=== PATIENT | male | born 1940 | race Caucasian/White ===

== ENCOUNTER 2018-08-23 15:50 | Inpatient (IN) | payer MEDICARE, BC ==
[~2018-08-23 15:50] MED LIST: ISOVUE-370 76%-LOCM 1 ML ONE
[2018-08-23] MEDS ORDERED: Morphine 4 MG/ML VIAL ONE ×2 (16:36→18:18)
[2018-08-23] MEDS ORDERED: Ondansetron PF 4 MG/2 ML Vial ONE (16:36)
[2018-08-23 16:51] LABS: #Lymphocytes 0.5 thou/uL (1.20-3.40); #Monocytes 0.8 thou/uL (0.11-0.59); #Neutrophils 7.2 thou/uL (1.40-6.50); %Basophils 0.4 % (0.0-1.0); %Eosinophils 0.2 % (0.0-10.0); %Lymphocytes 6.3 % (21.0-51.0); %Monocytes 9.4 % (0.0-10.0); %Neutrophils 83.8 % (42.0-75.0); Hemoglobin 15.6 g/dL (14.0-18.0); Mean Corpuscular HGB CONC 32.8 g/dL (32.0-36.0); Mean Corpuscular Hemoglobin 31.4 pg (27.0-31.0); Mean Corpuscular Volume 95.9 fL (78.0-98.0); Mean Platelet Volume 7.8 fL (7.4-10.4); Platelet Count 176 thou/uL (130-400); RBC Distribution Width 12.6 % (11.5-14.5); Red Blood Cell (RBC) Count 4.98 mill/uL (4.70-6.10); White Blood Cell (WBC) Count 8.5 thou/uL (4.8-10.8)
[2018-08-23 17:03] LABS: ALT (SGPT) 11 U/L (8-55); AST (SGOT) 18 U/L (5-34); Albumin 4.5 g/dL (3.4-4.8); Alkaline Phosphatase 67 U/L (40-150); Anion Gap 13 mmol/L (10-20); BUN (Urea Nitrogen) 22 mg/dL (8.4-25.7); Bilirubin, Total 0.6 mg/dL (0.2-1.2); Calc. Creatinine Clearance 0 mL/min (70-130); Carbon Dioxide 25 mmol/L (23-31); Chloride 102 mmol/L (98-107); Estimated GFR-MDRD 68; Globulin 3.3 g/dL (2.4-3.5); Glucose 149 mg/dL (83-110); Lipase 5 U/L (8-78); Potassium 4.3 mmol/L (3.5-5.1); Protein, Total 7.8 g/dL (5.8-8.1); Sodium 136 mmol/L (136-145)
[2018-08-23 17:20] LABS: Bilirubin Negative (Negative); Clarity CLEAR (Clear); Glucose, Urine (Dipstick) Negative (Negative); Leukocyte Negative (Negative); Nitrite Negative (Negative); Protein, Urine (Dipstick) 30 mg/dL (Neg-Trace); Urobilinogen 0.2 mg/dL (0.2-1.0); pH, Urine 5.5 (5.0-9.0)
[2018-08-23 17:22] LABS: Bacteria/HPF None Seen HPF (None Seen); Hyaline Casts/LPF 4-6 HYALINE CAST LPF (0-3 Hyaline); Pathc Cast-AUWi Flag 0.81 (0-2.49); Squamous Epithelial 0-3 HPF (0-3); WBC/HPF 0-3 HPF (0-3)
--- NOTE | 2018-08-23 17:29 | RAD ---
AP view abdomen. HISTORY: Abdominal pain. AP view abdomen is obtained. Severe levoscoliosis centered at the L3 level. No obvious evidence of bowel obstruction or ileus seen . No dilated loops of bowel seen. IMPRESSION: Unremarkable AP view abdomen.
[2018-08-23 17:47] LABS: Blood, Urine Trace (Negative)
--- NOTE | 2018-08-23 18:27 | CT ---
Contrast-enhanced images abdomen and pelvis. HISTORY: Abdominal pain. Contrast-enhanced CT images of the abdomen pelvis is obtained after administration of IV contrast. Or al contrast was not given. Some areas of patchy density seen in the left lower lobe concerning for area of left lower lobe mass or pneumonia. This area has a diameter of the approximately 10 mm. No evidence of free intraperitoneal air seen. The liver and spleen are unremarkable. The pancreas is unremarkable. Raff the gallbladder is unremarkable. Adrenal glands unremarkable. Multiple bilateral renal cortical cyst seen. Multiple left perihilar renal cysts are also present. There is extensive proximal small bowel dilatation. Areas of the proximal small bowel have diameters up to 4 cm. There is an area of soft tissue density in the proximal to mid small bowel seen on axial image #57 and coronal image 51. This may represent an area of small bowel mass or obstruction. Correlate with surgical consultation. The more distal aspect of the small bowel is unremarkable and is of normal caliber. A moderate amount of stool seen in the colon. IMPRESSION: area of proximal small bowel dilatation with focal small bowel caliber change and possibl e associated mass.
[2018-08-23] MEDS ORDERED: Lidocaine Viscous Sol 2% 15 ml UD Cup ONE (18:48)
[2018-08-23] MEDS ORDERED: Benzocaine 20% Spray 60 ML CAN ONE (18:48)
--- NOTE | 2018-08-23 19:15 | RAD ---
Upright view abdomen HISTORY: Placement of NG tube, abdominal pain, bowel obstruction NG tube is been placed and is coiled with a hairpin turn in the mid and distal esophagus. This needs to be pulled back and repositioned to have the distal tip in the stomach. IMPRESSION: NG tube with a hairpin turn within the esophagus.
[2018-08-23] MEDS ORDERED: hydrALAZINE 20 MG/ML VIAL ONE (20:12)
--- NOTE | 2018-08-23 21:21 | RAD ---
AP view lower chest and upper abdomen. Patient with NG tube placement. AP view lower chest and upper abdomen demonstrates placement of an NG tube. Distal tip appears to be in the left upper quadrant of the abdomen in good position. IMPRESSION: NG tube in good position.
[2018-08-23] MEDS ORDERED: Ondansetron ODT 4 MG TAB SL PRN (21:40)
[2018-08-23] MEDS ORDERED: Sodium Chloride 0.9% 1,000 ML IV SCH (21:40)
[2018-08-23] MEDS ORDERED: Acetaminophen 325 MG TAB PO PRN (21:40)
[2018-08-23] MEDS ORDERED: Ondansetron PF 4 MG/2 ML Vial IVP PRN (21:40)
[2018-08-23 23:13] VITALS: BMI 23.6
[2018-08-24] MEDS ORDERED: Acetaminophen 500 MG TAB PO PRN (02:30)
[2018-08-24] MEDS ORDERED: Ondansetron ODT 4 MG TAB PO PRN (02:30)
[2018-08-24] MEDS ORDERED: hydrALAZINE 20 MG/ML VIAL SLOW IVP PRN (02:30)
[2018-08-24] MEDS ORDERED: Ondansetron PF 4 MG/2 ML Vial IVP PRN (02:30)
[2018-08-24] MEDS ORDERED: Morphine 4 MG/ML VIAL SLOW IVP PRN (02:53)
--- NOTE | 2018-08-24 03:11 | HP ---
PRIMARY CARE PROVIDER: Mor Menon MD CHIEF COMPLAINT: Abdominal pain. HISTORY OF PRESENT ILLNESS: This is a 78-year-old male, who presented to [facility] Emergency Department complaining of severe abdominal pain, right-sided in location, approximately within the last 48 hours. The patient initially rated the pain 9/10, but states the pain mainly localized in the right upper and lower quadrant with associated nausea and vomiting. The patient states his last bowel movement was in the last 3 to 4 days with a history of constipation. Last oral intake was 08/23/2018 at 10:30 a.m. The patient tried taking his home dose of Zantac, which did not resolve his symptoms. The patient denied any recent fever, chills, abdominal trauma, recent surgery, or blood in his stool. In the emergency room, the patient underwent general evaluation including CT imaging of the abdomen and pelvis showing evidence of small bowel obstruction. The patient underwent subsequent NG tube placement with decompression with overall improvement in symptoms. The patient denies any prior history of small bowel obstruction, but does state he underwent an appendectomy in 2003. In the ER, the patient also received Toradol, intravenous normal saline, morphine sulfate, and Zofran. The patient was referred to the Hospitalist Service for admission. PAST MEDICAL HISTORY: 1. Parkinson disease. 2. Hypertension. 3. Coronary artery disease. 4. Benign prostatic hyperplasia. 5. Peripheral neuropathy. 6. Hyperlipidemia. PAST SURGICAL HISTORY: 1. Status post cervical spine surgery. 2. Status post cardiac catheterization. 3. Status post appendectomy. 4. Status post carpal tunnel release. 5. Status post coronary artery bypass grafting x4 vessels. 6. Status post right toe surgery. CURRENT MEDICATIONS: 1. Carbidopa levodopa 25/100 mg, one and a half tabs p.o. q.i.d. 2. Aricept 10 mg p.o. daily. 3. Isosorbide mononitrate 5 mg p.o. b.i.d. 4. Ranitidine 150 mg p.o. at bedtime. 5. Crestor 10 mg p.o. at bedtime. 6. Hytrin 2 mg p.o. at bedtime. ALLERGIES: NO KNOWN DRUG ALLERGIES. FAMILY HISTORY: Positive for hypertension. SOCIAL HISTORY: The patient is , accompanied by his spouse in the hospital. Resides in [place], [place]. Retired. Occasional alcohol use. No tobacco or illicit drug use. REVIEW OF SYSTEMS: CONSTITUTIONAL: Negative for weight loss or gain, ability to conduct usual activities. SKIN: Negative for rash, itching. EYES: Negative for double vision, pain. ENT/MOUTH: Negative for nose bleeding, neck stiffness, pain, tenderness. CARDIOVASCULAR: Negative for palpitations, dyspnea on exertion, orthopnea. RESPIRATORY: Negative for shortness of breath, wheezing, cough, hemoptysis, fever or night sweats. GASTROINTESTINAL: Negative for poor appetite, abdominal pain, heartburn, nausea, vomiting, constipation, or diarrhea. GENITOURINARY: Negative for urgency, frequency, dysuria, nocturia. MUSCULOSKELETAL: Negative for pain, swelling. NEUROLOGIC/PSYCHIATRIC: Negative for anxiety, depression. ALLERGY/IMMUNOLOGIC: Negative for skin rash, bleeding tendency. Otherwise negative except as stated per HPI. PHYSICAL EXAMINATION: VITAL SIGNS: On admission, blood pressure 173/93, pulse 81, respiratory rate 18, temperature 98.2 degrees Fahrenheit, and O2 saturation 96% on room air. GENERAL APPEARANCE: This is a 78-year-old male, alert and oriented x3, pleasant, responsive, in no acute distress. HEENT: Pupils are equal, round, and reactive to light and accommodation. Extraocular muscles are intact. No scleral icterus. No conjunctival injection. Nares patent. Right nares with NG tube in place. OP is clear. NECK: Supple. No cervical adenopathy. No thyromegaly. No carotid bruits. No JVD appreciated. Cervical spine with full active and passive range of motion. No meningeal signs noted. CHEST: Lungs are clear to auscultation bilaterally. CARDIOVASCULAR: S1 and S2 without noted murmur, rub, or gallop. ABDOMEN: Soft with bowel sounds positive in all 4 quadrants. No palpable mass. No rebound or guarding noted. EXTREMITIES: Warm and dry with fair turgor. No clubbing, cyanosis, or asymmetric edema appreciated. Pulses palpable distally at the dorsalis pedis, posterior tibial, and popliteal arteries bilaterally. Capillary refill less than 2 seconds. NEUROLOGIC: Cranial nerves 2 through 12 are grossly intact. No focal or lateralizing signs appreciated. PERTINENT LAB AND X-RAY FINDINGS: Complete metabolic profile within normal limits. CEA 3.74. CBC showed a white blood cell count 8.5, hemoglobin 16, hematocrit 48, platelet count 176 with 84% neutrophils. Urinalysis showed trace ketones with 7 to 10 rbc's per high-power field. CT of the abdomen and pelvis dated 08/23/2018, showed proximal small bowel dilation with focal small bowel caliber change consistent with small bowel obstruction. Abdominal radiographs dated 08/23/2018, showed NG tube in place with distal tip in the left upper quadrant. EKG dated 08/23/2018 by my interpretation shows sinus mechanism, heart rates in the 60s. Attenuated R-waves noted in the precordial leads. Left axis deviation. Incomplete right bundle branch block pattern noted. ASSESSMENT AND PLAN: 1. Small bowel obstruction. The patient will be admitted to the surgical bell. We will consult General Surgery Service for further evaluation and recommendations for management. Continue NG tube for decompression. N.p.o. except ice chips and medications. Continue intravenous normal saline at 100 mL/h. 2. Right upper and lower quadrant abdominal pain secondary to #1. Symptomatic and supportive management as outlined in #1. Serial abdominal exams. 3. Constipation, chronic. Senokot-S 2 tablets p.o. b.i.d. and Dulcolax suppository 10 mg per rectum x1. 4. Parkinson disease. Resume home regimen of Sinemet 25/100 mg 1.5 tablets q.i.d. 5. Prophylaxis. SCDs while in bed. Pepcid 20 mg IV q.12 hours. 6. Code status is full. Surrogate medical decision maker is the patient's spouse. Job ID: [id number]
[2018-08-24] MEDS ORDERED: Bisacodyl 10 MG SUPP PR ONE (05:00)
[2018-08-24] MEDS: Sodium Chloride 0.9% 1,000 ML IV SCH ×2 (05:20→13:22)
[2018-08-24 05:32] LABS: Anion Gap 10 mmol/L (10-20); BUN (Urea Nitrogen) 18 mg/dL (8.4-25.7); Calc. Creatinine Clearance 74 mL/min (70-130); Calcium 9.2 mg/dL (7.8-10.44); Carbon Dioxide 26 mmol/L (23-31); Chloride 106 mmol/L (98-107); Estimated GFR-MDRD 84; Glucose 103 mg/dL (83-110); Potassium 3.9 mmol/L (3.5-5.1); Sodium 138 mmol/L (136-145)
[2018-08-24 05:49] LABS: Band 1 % (5-11); Hemoglobin 14.7 g/dL (14.0-18.0); Lymphocytes 12 % (21-51); MDiff Complete? YES; Mean Corpuscular Hemoglobin 31.8 pg (27.0-31.0); Mean Corpuscular Volume 96.5 fL (78.0-98.0); Mean Platelet Volume 7.6 fL (7.4-10.4); Monocytes 8 % (0-10); Neutrophil 79 % (42-75); Platelet Count 164 thou/uL (130-400); Platelet Morphology Comment Appears Adequate; RBC Distribution Width 12.8 % (11.5-14.5); RBC Morphology Normal; Red Blood Cell (RBC) Count 4.61 mill/uL (4.70-6.10); White Blood Cell (WBC) Count 8.4 thou/uL (4.8-10.8)
[2018-08-24] MEDS: Carbidopa/Levodopa 25-100 mg Tablet PO SCH ×3 (07:56→17:24)
[2018-08-24] MEDS ORDERED: Donepezil HCl 10 MG TAB PO SCH (09:00)
[2018-08-24] MEDS ORDERED: Senokot S 8.6-50 MG TAB PO SCH (09:00)
[2018-08-24] MEDS ORDERED: Isosorbide Mononitrate 20 MG TAB PO SCH (09:00)
[2018-08-24] MEDS ORDERED: Famotidine/PF 20 mg/2ml Vial SLOW IVP SCH (09:00)
--- NOTE | 2018-08-24 09:16 | RAD ---
Abdomen 2 views Chest one view HISTORY: Bowel obstruction. Follow-up. COMPARISON: 08/23/2018. FINDINGS: Cardiac silhouette is magnified by projection. Pulmonary vasculature is unremarkable. Media stinum is midline with postoperative changes and aortic calcification. Nasogastric tube descends to the stomach with the proximal sidehole at the level of the GE junction. No lobar consolidation or evidence of free subdiaphragmatic gas. Gas and stool throughout the colon and rectum. Mildly distended gaseous acute left upper quadrant lesly sures up to 3.5 cm. Prominent degenerative changes lumbar spine. IMPRESSION: Nasogastric tube now descends to the stomach with proximal sidehole at the GE junction. C onsider advancing 5-10 cm. Nonspecific bowel gas pattern. Single mildly dilated loop of jejunum in the left upper quadrant.
[2018-08-24] MEDS ORDERED: MD-Gastroview 120 ML BOT ONE (11:37)
--- NOTE | 2018-08-24 11:51 | RAD ---
Small bowel follow-through HISTORY: Abdominal pain. Obstruction. FINDINGS: Proximal port of the nasogastric tube is at the level of the GE junction. Water-soluble contrast was administered through the NG tube. There is immediate opacification of the stomach. Nondilated small bowel loops are opacified at 2 hours with contrast extending into the right colon. IMPRESSION: No evidence of bowel obstruction. If it is to remain, consider advancing nasogastric tube 10 cm for better positioning.
[2018-08-24] MEDS ORDERED: POLYETHYLENE GLYCOL 17 GM PO PRN (11:59)
[2018-08-24] MEDS ORDERED: Magnesium Citrate 300 ML BOT PER TUBE SCH (12:30)
--- NOTE | 2018-08-24 14:28 | PDOC.PN ---
- Subjective Encounter Start Date: 08/24/18 Encounter Start Time: 11:45 Mr. Mukherjee was seen today in follow-up of right sided abdominal pain, and partial bowel obstruction. He says he feels much better today. He has not had any abdominal pain since last night. He had 3 very large bowel movements today. - Objective Resuscitation Status - Order Detail: 08/24/18 02:25 Resuscitation Status Routine Resuscitation Status: FULL: Full Resuscitation MAR Reviewed: Yes Vital Signs & Weight: Vital Signs (12 hours) Temp Pulse Resp BP Pulse Ox 08/24/18 11:15 97.7 F 70 20 178/74 H 95 08/24/18 07:10 98.5 F 69 20 168/80 H 95 08/24/18 04:00 99.7 F H 67 18 180/77 H 95 Weight Admit Weight 165 lb Weight 165 lb I&O: 08/23/18 08/24/18 08/25/18 06:59 06:59 06:59 Intake Total 1300 Output Total 350 Balance 950 Result Diagrams: 08/24/18 04:52 08/24/18 04:52 Phys Exam - Physical Examination HEENT: PERRLA, sclera anicteric Respiratory: no wheezing, no rales, no rhonchi, clear to auscultation bilateral Cardiovascular: RRR, no significant murmur, no rub Gastrointestinal: soft, non-tender, no distention, positive bowel sounds Musculoskeletal: no edema, pulses present Dx/Plan (1) Partial small bowel obstruction Status: Acute (2) Hypertension Code(s): I10 - ESSENTIAL (PRIMARY) HYPERTENSION Status: Chronic (3) Coronary artery disease Code(s): I25.10 - ATHSCL HEART DISEASE OF EEK CORONARY ARTERY W/O ANG PCTRS Status: Chronic (4) BPH (benign prostatic hyperplasia) Code(s): N40.0 - BENIGN PROSTATIC HYPERPLASIA WITHOUT LOWER URINRY TRACT SYMP Status: Chronic - Plan * Partial Bowel Ostruction- this appears to be resolving * HTN- blood pressure is a bit elevated- - will re-start hie home medications * CAD- stable- re-start Isordil * Hopefully home soon when tolerating a solid diet.
--- NOTE | 2018-08-24 14:50 | HP ---
HISTORY OF PRESENT ILLNESS: Efra Mukherjee is a 78-year-old male patient admitted by hospitalist yesterday. The patient had had onset of abdominal pain without nausea without vomiting, but had been obstipated for 3 days. He since being in the hospital has had a small bowel movement. On admission, he had a CAT scan of the abdomen and pelvis revealing significant constipation, paroxysmal small bowel dilatation, distal small bowel decompression, and transition zone with the soft tissue density in the small bowel suggestive of either bowel obstruction or mass. The patient has not had any abdominal operations in the past. He has had a colonoscopy in the past, although he cannot remember exactly when. Today, his pain has resolved. He has had a small bowel movement as noted above. His NG tube is confirmed radiologically in good position after placement, and output overnight was 200 mL. Abdomen is soft, nontender. Plan at this time is for small bowel follow-through through the NG tube. We would ask the nurse to call me when this study is complete. Perhaps we can remove his NG tube today and advance his diet pending outcome of the small bowel follow through. ALLERGIES: NONE. SOCIAL HISTORY: Tobacco, none. Alcohol, 2 to 3 glasses of wine a week. MEDICATIONS AT HOME: 1. CoQ10. 2. MiraLAX p.r.n. 3. Glucosamine daily. 4. Isosorbide b.i.d. 15 mg. 5. Carbidopa and levodopa 1.5 mg q.i.d. 6. Aricept 10 mg daily. 7. Hytrin 2 mg at bedtime. 8. Crestor 10 mg at bedtime. 9. Ranitidine 150 mg at bedtime. PAST SURGICAL HISTORY: Carpal tunnel release, cervical spine surgery. The patient had a coronary artery bypass grafting in 1996, performed by Dr. Chaudhry. He is followed by sandwich machine operator, he cannot remember who the sandwich machine operator is, although he states he saw him about 6 months ago and said that everything was okay on that checkup. He denies any cardiac symptomatology. Appendectomy, although he does not recall that. PAST MEDICAL HISTORY: Parkinson's, dementia, coronary artery disease stable, asymptomatic currently, BPH, hyperlipidemia. REVIEW OF SYSTEMS: Ten-point noncontributory. PHYSICAL EXAMINATION: VITAL SIGNS: Height 5 feet 10 inches, weight 165 pounds, 23 BMI, temperature 98.5, heart rate 69, blood pressure 168/80. HEAD, EYES, EARS, NOSE, AND THROAT: Unremarkable. LUNGS: Clear to auscultation. CARDIAC: Regular rate and rhythm. No murmur or gallop. ABDOMEN: Soft, flat, nontender. No masses. EXTREMITIES: Unremarkable. Palpable pedal pulses. LABORATORY DATA: White count 8, hemoglobin 14.7. Basic metabolic profile is normal. ASSESSMENT AND PLAN: 1. Constipation, abdominal pain. CAT scan suggests small bowel obstruction and question of mass in the small bowel versus stool. He has had minimal output of his NG tube. He has had a small bowel movement. His abdominal pain has resolved. His abdominal exam is benign. There are no hernias or masses palpated. We will plan small bowel follow through per his NG tube, and hopefully, we will remove his NG tube later today and advance his diet. We will make further recommendations based on clinical course and small bowel follow through results. 2. Coronary artery disease. 3. Parkinson's. 4. Dementia. 5. Hyperlipidemia. 6. Stable coronary artery disease, asymptomatic. Job ID: [id number]
[2018-08-24 16:12] VITALS: BP 154/77; TEMP 98.6
[2018-08-24] MEDS ORDERED: Polyethylene Glycol 3350 17 GM Packet PO SCH (21:00)
[2018-08-24] MEDS ORDERED: Terazosin HCl 1 MG CAP PO SCH (21:00)
[2018-08-24] MEDS ORDERED: Famotidine 20 MG TAB PO SCH (21:00)
[2018-08-24] MEDS ORDERED: Rosuvastatin 20 MG TAB PO SCH (21:00)
[2018-08-24] MEDS ORDERED: Citrucel 500 MG TAB PO SCH (21:00)
[2018-08-25] MEDS ORDERED: Ubidecarenone 50 MG CAP PO SCH (09:00)
--- NOTE | 2018-08-25 10:58 | DIS ---
DATE OF ADMISSION: 08/23/2018 DATE OF DISCHARGE: 08/24/2018 PRIMARY CARE PHYSICIAN: Dr. Mor Menon. DISCHARGE DIAGNOSES: 1. Small bowel obstruction, resolved. 2. Chronic constipation. 3. Parkinson disease. 4. Dyslipidemia. 5. Benign prostatic hyperplasia. DISCHARGE MEDICATIONS: Include: 1. CoQ10 100 mg daily. 2. Hytrin 2 mg q.h.s. 3. Crestor 10 mg q.h.s. 4. Ranitidine 150 mg q.h.s. 5. 17 g daily. 6. Isosorbide mononitrate 15 mg twice a day. 7. Glucosamine/chondroitin 1 capsule daily. 8. Aricept 10 mg daily. 9. Carbidopa-levodopa 25/100 one and one-half tablets q.i.d. LAB AND X-RAY: The patient had a CT scan of the abdomen and pelvis, in which there was an area of proximal small-bowel dilatation and a possible associated mass. The patient had a small bowel series, which showed no evidence of bowel obstruction. CODE STATUS: Full code. ALLERGIES: NO KNOWN DRUG ALLERGIES. HOSPITAL COURSE: Mr. Mukherjee is a pleasant 78-year-old gentleman, who presented to the emergency room with complaints of abdominal pain, which was localized primarily to the right upper and lower quadrant. The pain was about 9/10. He was evaluated in the ER and had a CT scan done, which showed findings concerning for bowel obstruction. He was admitted. An NG tube was placed. He was started on IV hydration as well as medications for pain. Later on that morning, his symptoms actually completely resolved and he says that he had several large bowel movements. He was seen by General Surgery and a small-bowel follow-through was ordered, which showed clearing of the obstruction and the patient was tried on a clear liquid and then solid diet. Once he tolerated this, was able to be discharged home. Job ID: [id number]
== END 2018-08-24 18:40 | disposition home or self-care (01) | DRG 390 ==
LOC: ERS 15:50 → SURG B 19:25
PROVIDERS: ADMIT Internal Medicine; ATTEND Internal Medicine
DX: K56.600 Partial intestinal obstruction, unspecified as to cause (principal); I10 Essential (primary) hypertension; I25.10 Atherosclerotic heart disease of native coronary artery without angina pectoris; N40.0 Benign prostatic hyperplasia without lower urinary tract symptoms; E78.5 Hyperlipidemia, unspecified; G20 Parkinson's disease; K59.00 Constipation, unspecified; F02.80 Dementia in other diseases classified elsewhere, unspecified severity, without behavioral disturbance, psychotic disturbance, mood disturbance, and anxiety; Z90.49 Acquired absence of other specified parts of digestive tract; Z95.1 Presence of aortocoronary bypass graft; Z79.899 Other long term (current) drug therapy
CPT/HCPCS: 36415; 74018; 74022; 74177; 74250; 80048; 80053; 81003; 81015; 82378; 83690; 84484; 85007; 85025; 85027; 93005; J0360; J2270; J2405; Q9966; S0028

== ENCOUNTER 2018-12-28 11:02 | Outpatient (CLI) | payer BC ==
--- NOTE | 2018-12-28 11:24 | RAD ---
EXAM: 2 views of the right hip HISTORY: Right hip pain COMPARISON: None FINDINGS: 2 views of the right hip shows no evidence of acute fracture or dislocation. Mild degenerat shikha changes are seen. No soft tissue swelling is present. IMPRESSION: No evidence of acute osseous abnormality.
--- NOTE | 2018-12-28 11:33 | RAD ---
LUMBAR SPINE TWO VIEWS: HISTORY: Low back pain. FINDINGS: Severe levoscoliosis of the lumbar vertebral column with extensive hypertrophic osteophytosis. No radha dence for acute fracture or dislocation. Very mild grade 1 anterolisthesis of L5 on S1. IMPRESSION: 1. Severe levoscoliosis. 2. Extensive spondylosis. 3. Very mild anterolisthesis of L5 on S1. POS: OFF
== END 2018-12-28 11:03 | disposition home or self-care (01) ==
LOC: BICRAD 11:02
PROVIDERS: ATTEND Chiropractor
DX: M54.5 Low back pain (principal); M25.551 Pain in right hip; M62.830 Muscle spasm of back; M41.9 Scoliosis, unspecified; M47.816 Spondylosis without myelopathy or radiculopathy, lumbar region; M43.17 Spondylolisthesis, lumbosacral region
CPT/HCPCS: 72100

== ENCOUNTER 2019-04-22 09:03 | Outpatient (CLI) | payer BC ==
--- NOTE | 2019-04-22 10:33 | RAD ---
2 VIEWS LEFT HIP: Date: 04/22/2019 PROVIDED CLINICAL HISTORY: Chronic hip pain. FINDINGS: There is no evidence for fracture or other acute osseous abnormality. Alignment appears anatomic. Lef t hip joint space appears preserved. Subchondral cyst formation is seen within the superior left acet abulum. IMPRESSION: Mild left hip degenerative change. POS: OFF
--- NOTE | 2019-04-22 10:34 | RAD ---
2 VIEWS RIGHT HIP: Date: 04/22/2019 PROVIDED CLINICAL HISTORY: Bilateral hip pain. FINDINGS: Comparison with 12/28/2018. No evidence for fracture or other acute osseous abnormality. Alignment appears anatomic. Right hip simona int space appears preserved. Osteophyte formation is seen about the hip. IMPRESSION: Mild right hip degenerative change, similar to prior. POS: OFF
--- NOTE | 2019-04-22 11:44 | RAD ---
TWO VIEWS OF THE LUMBAR SPINE: DATE: 04/22/2019. COMPARISON: None. HISTORY: Mild low back pain, severe bilateral hip pain and stiffness. FINDINGS: Incompletely imaged midline sternotomy wires present. Postoperative clips are noted in the left uppe r quadrant. There is right lateral height loss involving the L3 vertebral body which may be on the basis of degen erative change, congenital change, and/or prior trauma. This results in a focal area of levoscoliosi s of the lumbar spine centered at the L3 level. There is prominent disk space narrowing with degener ative sclerotic end plate changes on the right at the L2-3 and L3-4 levels. There is left lateral os teophyte formation at tL1-2 and L2-3. There is prominent anterior osteophyte formation on the latera l view most prominent at the L1-2, L2-3, and L3-4 levels. There is multilevel lower lumbar spine fac et hypertrophy. There is mild retrolisthesis at L3-4 measuring 5 mm and at L4-5 measuring approximat madiha 2-3 mm. Mild anterolisthesis of L5 on S1 measures 6 mm. There is atherosclerotic calcification of the abdominal aorta. IMPRESSION: Multilevel significant degenerative change within the lumbar spine as detailed above. POS: TPC
== END 2019-04-22 09:04 | disposition home or self-care (01) ==
LOC: BICRAD 09:03
PROVIDERS: ATTEND Family Medicine
DX: M25.551 Pain in right hip (principal); M25.552 Pain in left hip; M54.5 Low back pain; M47.816 Spondylosis without myelopathy or radiculopathy, lumbar region; M16.0 Bilateral primary osteoarthritis of hip
CPT/HCPCS: 72100

== ENCOUNTER 2020-05-08 19:24 | Emergency (ER) | payer BC ==
[2020-05-08] MEDS ORDERED: Bupivacaine 0.5% 10 ML VIAL ONE (19:48)
--- NOTE | 2020-05-08 20:12 | RAD ---
LEFT HAND THREE VIEWS: 05/08/20 HISTORY: Fall. There is a dislocation at the PIP joint. There is what may be a tiny avulsion with a tiny bony densit y seen along the volar side of the head of the proximal phalanx. Arthritic changes of the hand and wr ist are also seen. IMPRESSION: Dislocation at the PIP joint. POS: SHERWIN
--- NOTE | 2020-05-08 20:47 | RAD ---
Exam: XR Hand Lt 3 View STANDARD HISTORY: Deformity of left middle finger. Follow-up evaluation. COMPARISON: 05/08/2020 at 1952 hours. FINDINGS: There has been interval reduction in the previously seen dislocation at the proximal interphalangeal joint left ring finger. No dislocation is seen on this examination. There is no evidence of a fracture. Osteoarthritis involves the interphalangeal joints. IMPRESSION: Interval reduction in previously noted dislocation proximal interphalangeal joint left ring finger. N o dislocation or fracture is seen on this exam.
== END 2020-05-08 21:01 | disposition home or self-care (01) ==
LOC: ERS 19:24
DX: S63.285A Dislocation of proximal interphalangeal joint of left ring finger, initial encounter (principal); S61.213A Laceration without foreign body of left middle finger without damage to nail, initial encounter; I25.10 Atherosclerotic heart disease of native coronary artery without angina pectoris; G20 Parkinson's disease; N40.0 Benign prostatic hyperplasia without lower urinary tract symptoms; G62.9 Polyneuropathy, unspecified; E78.5 Hyperlipidemia, unspecified; I10 Essential (primary) hypertension; Z79.899 Other long term (current) drug therapy; W01.0XXA Fall on same level from slipping, tripping and stumbling without subsequent striking against object, initial encounter; Y92.009 Unspecified place in unspecified non-institutional (private) residence as the place of occurrence of the external cause
CPT/HCPCS: J3490

== ENCOUNTER 2020-05-08 23:00 | Emergency (ER) | payer BC ==
--- NOTE | 2020-05-08 23:21 | RAD ---
Exam: XR Finger(s) Lt Min 2 View HISTORY: Dislocation left fourth finger. Dislocation was reduced, but deformity of the left ring finger has re curred. COMPARISON: Views left hand on 05/08/2020 FINDINGS: As noted on study on 05/08/2020 at 1952 hours, there is dislocation involving the proximal interphalang eal joint of the left ring finger with the middle phalanx dislocated dorsally with respect to the proximal phalanx. No obvious fracture seen on provided images. Overlying splint material is present. IMPRESSION: Dislocation proximal interphalangeal joint left ring finger.
--- NOTE | 2020-05-09 07:11 | RAD ---
Exam:Left hand fourth digit 3 views HISTORY: Subluxation COMPARISON: 05/26/2020 at 11:14 PM FINDINGS: External splint device is identified. Interval reduction of previously noted dislocation in volving the proximal interphalangeal joint space. Avulsed fracture fragment is noted on the lateral projection. IMPRESSION: 1. Interval reduction. 2. Evidence of an avulsed fracture fragment. Donor site is uncertain. Results study conveyed to Dr. Ross on 05/09/2020 at 7:10 AM Code CR Transcribed Date/Time: 05/09/2020 7:40 AM
== END 2020-05-09 00:07 | disposition home or self-care (01) ==
LOC: ERS 23:00
DX: S63.285A Dislocation of proximal interphalangeal joint of left ring finger, initial encounter (principal); I25.10 Atherosclerotic heart disease of native coronary artery without angina pectoris; N40.0 Benign prostatic hyperplasia without lower urinary tract symptoms; I10 Essential (primary) hypertension; G62.9 Polyneuropathy, unspecified; E78.5 Hyperlipidemia, unspecified; G20 Parkinson's disease
CPT/HCPCS: 26770; J3490

== ENCOUNTER 2020-11-15 13:05 | Inpatient (IN) | payer MEDICARE, BC ==
[2020-11-15 14:23] LABS: #Eosinphils 0.3 thou/uL (0.0-0.7); #Lymphocytes 0.9 thou/uL (1.20-3.40); #Monocytes 0.9 thou/uL (0.11-0.59); #Neutrophils 5.6 thou/uL (1.40-6.50); %Basophils 0.3 % (0.0-1.0); %Eosinophils 3.5 % (0.0-10.0); %Lymphocytes 11.2 % (21.0-51.0); %Monocytes 12.2 % (0.0-10.0); %Neutrophils 72.8 % (42.0-75.0); Hemoglobin 13.7 g/dL (14.0-18.0); Mean Corpuscular HGB CONC 32.8 g/dL (32.0-36.0); Mean Corpuscular Hemoglobin 31.6 pg (27.0-31.0); Mean Corpuscular Volume 96.4 fL (78.0-98.0); Mean Platelet Volume 7.8 fL (7.4-10.4); Platelet Count 146 thou/uL (130-400); RBC Distribution Width 12.8 % (11.5-14.5); Red Blood Cell (RBC) Count 4.34 mill/uL (4.70-6.10); White Blood Cell (WBC) Count 7.7 thou/uL (4.8-10.8)
[2020-11-15 14:33] LABS: ALT (SGPT) Less than 7 U/L (8-55); AST (SGOT) 16 U/L (5-34); Albumin 3.6 g/dL (3.4-4.8); Alkaline Phosphatase 69 U/L (40-110); Anion Gap 12 mmol/L (10-20); BUN (Urea Nitrogen) 25 mg/dL (8.4-25.7); Bilirubin, Total 0.6 mg/dL (0.2-1.2); Calc. Creatinine Clearance 0 mL/min (70-130); Calcium 8.8 mg/dL (7.8-10.44); Carbon Dioxide 22 mmol/L (23-31); Chloride 108 mmol/L (98-107); Globulin 2.8 g/dL (2.4-3.5); Glucose 105 mg/dL (83-110); Potassium 4.1 mmol/L (3.5-5.1); Protein, Total 6.4 g/dL (5.8-8.1); Sodium 138 mmol/L (136-145)
[2020-11-15 14:56] LABS: Bilirubin Negative (Negative); Blood, Urine Negative (Negative); Clarity Clear (Clear); Glucose, Urine (Dipstick) Normal (Negative); Ketone, Urine Negative (Negative); Leukocyte Negative Leu/uL (Negative); Nitrite Negative (Negative); Protein, Urine (Dipstick) Negative (Neg-Trace); Specific Gravity, Urine 1.018 (1.002-1.036); Urobilinogen Normal mg/dL (Less than 2); pH, Urine 6.5 (5.0-9.0)
[2020-11-15] MEDS ORDERED: Enoxaparin Sodium 40 MG/0.4 ML SYRINGE SC SCH (16:15)
[2020-11-15 18:06] LABS: Troponin I Less than 0.010 ng/mL (< 0.028)
[2020-11-15] MEDS ORDERED: hydrALAZINE 20 MG/ML VIAL SLOW IVP PRN (19:43)
[2020-11-15] MEDS ORDERED: Enoxaparin Sodium 40 MG/0.4 ML SYRINGE ONE (21:03)
[2020-11-15] MEDS: Sodium Chloride 0.9% 1,000 ML IV SCH (21:06)
[2020-11-15 21:08] LABS: Troponin I Less than 0.010 ng/mL (< 0.028)
[2020-11-15 22:57] VITALS: BMI 23.8
[2020-11-15] MEDS: Isosorbide Mononitrate 20 MG TAB PO SCH (23:06)
[2020-11-15] MEDS: Carbidopa/Levodopa 25-100 mg Tablet PO SCH ×2 (23:07→23:08)
[2020-11-15] MEDS: Rosuvastatin 10 MG TAB PO SCH (23:08)
[2020-11-16] MEDS: Sodium Chloride 0.9% 1,000 ML IV SCH ×2 (01:50→09:59)
[2020-11-16] MEDS: Acetaminophen 325 MG TAB PO PRN ×2 (03:12→20:35)
[2020-11-16] MEDS: Carbidopa/Levodopa 25-100 mg Tablet PO SCH ×4 (08:07→20:35)
[2020-11-16] MEDS: Donepezil HCl 10 MG TAB PO SCH (08:08)
[2020-11-16] MEDS: Enoxaparin Sodium 40 MG/0.4 ML SYRINGE SC SCH (08:08)
[2020-11-16] MEDS: Isosorbide Mononitrate 20 MG TAB PO SCH ×2 (08:09→20:35)
[2020-11-16] MEDS: hydrALAZINE 25 MG TAB PO SCH ×2 (08:09→14:52)
[2020-11-16 08:33] LABS: SARS-CoV-2 PCR by NAA Not Detected (NotDetected)
[2020-11-16] MEDS ORDERED: CHONDROITIN PO SCH (09:00)
[2020-11-16] MEDS ORDERED: METHYLSULFONYLMETHANE PO SCH (09:00)
[2020-11-16] MEDS ORDERED: GLUCOSAMINE PO SCH (09:00)
[2020-11-16] MEDS ORDERED: Sodium Chloride 0.9% 500 ML IV SCH (09:45)
[2020-11-16] MEDS: Rosuvastatin 10 MG TAB PO SCH (20:32)
[2020-11-17] MEDS: Carbidopa/Levodopa 25-100 mg Tablet PO SCH ×4 (08:57→20:28)
[2020-11-17] MEDS: Enoxaparin Sodium 40 MG/0.4 ML SYRINGE SC SCH (08:58)
[2020-11-17] MEDS: Isosorbide Mononitrate 20 MG TAB PO SCH (08:58)
[2020-11-17] MEDS: Donepezil HCl 10 MG TAB PO SCH (08:58)
[2020-11-17] MEDS: hydrALAZINE 20 MG/ML VIAL SLOW IVP PRN (11:44)
[2020-11-17] MEDS: Rosuvastatin 10 MG TAB PO SCH (20:28)
[2020-11-18] MEDS: Enoxaparin Sodium 40 MG/0.4 ML SYRINGE SC SCH (08:35)
[2020-11-18] MEDS: Carbidopa/Levodopa 25-100 mg Tablet PO SCH ×4 (08:38→20:52)
[2020-11-18 10:49] LABS: Hemoglobin 14.3 g/dL (14.0-18.0); Mean Corpuscular HGB CONC 32.5 g/dL (32.0-36.0); Mean Corpuscular Hemoglobin 32.1 pg (27.0-31.0); Mean Corpuscular Volume 98.5 fL (78.0-98.0); Mean Platelet Volume 7.3 fL (7.4-10.4); Platelet Count 216 thou/uL (130-400); RBC Distribution Width 12.9 % (11.5-14.5); Red Blood Cell (RBC) Count 4.45 mill/uL (4.70-6.10); White Blood Cell (WBC) Count 6.4 thou/uL (4.8-10.8)
[2020-11-18] MEDS: Rosuvastatin 10 MG TAB PO SCH (20:53)
[2020-11-18] MEDS ORDERED: ALPRAZolam 0.5 MG TAB PO SCH (22:15)
[2020-11-19] MEDS: hydrALAZINE 20 MG/ML VIAL SLOW IVP PRN (06:23)
[2020-11-19] MEDS: Enoxaparin Sodium 40 MG/0.4 ML SYRINGE SC SCH (09:14)
[2020-11-19] MEDS: Carbidopa/Levodopa 25-100 mg Tablet PO SCH ×2 (09:14→14:19)
[2020-11-19] MEDS ORDERED: cloNIDine 0.1 MG TAB PO PRN (09:17)
[2020-11-19] MEDS ORDERED: Amlodipine 5 MG TAB PO SCH (09:30)
[2020-11-19 14:24] VITALS: BP 132/62; TEMP 97.5
[2020-11-20] MEDS ORDERED: Amlodipine 5 MG TAB PO SCH (09:00)
== END 2020-11-19 15:59 | disposition home or self-care (01) | DRG 312 ==
LOC: ERS 13:05 → ERHOLD 15:38 → 2NO 17:20 → OBSVTOIN 11-16 07:36
PROVIDERS: ADMIT Internal Medicine; ATTEND Internal Medicine
DX: I95.1 Orthostatic hypotension (principal); F02.81 Dementia in other diseases classified elsewhere, unspecified severity, with behavioral disturbance; Z20.822 Contact with and (suspected) exposure to COVID-19; G20 Parkinson's disease; R00.1 Bradycardia, unspecified; I10 Essential (primary) hypertension; I16.0 Hypertensive urgency; I08.1 Rheumatic disorders of both mitral and tricuspid valves; I25.10 Atherosclerotic heart disease of native coronary artery without angina pectoris; N40.0 Benign prostatic hyperplasia without lower urinary tract symptoms; E78.5 Hyperlipidemia, unspecified; K21.9 Gastro-esophageal reflux disease without esophagitis; D64.9 Anemia, unspecified; Z95.1 Presence of aortocoronary bypass graft; Z79.899 Other long term (current) drug therapy; Z79.02 Long term (current) use of antithrombotics/antiplatelets; Z79.82 Long term (current) use of aspirin; S01.01XA Laceration without foreign body of scalp, initial encounter; G62.9 Polyneuropathy, unspecified; Z23 Encounter for immunization; W19.XXXA Unspecified fall, initial encounter
CPT/HCPCS: 12001; 36415; 70450; 71045; 72125; 80053; 81003; 84484; 85025; 85027; 90471; 90715; 93005; 93306; 96372; 96374; G0378; J0360; J1650; U0003; U0005

== ENCOUNTER 2021-01-26 07:59 | Emergency (ER) | payer MEDICARE, BC ==
[2021-01-26 09:17] LABS: #Basophils 0.1 thou/uL (0.0-0.2); #Eosinphils 0.3 thou/uL (0.0-0.7); #Monocytes 0.7 thou/uL (0.11-0.59); #Neutrophils 4.2 thou/uL (1.40-6.50); %Basophils 0.8 % (0.0-1.0); %Eosinophils 4.7 % (0.0-10.0); %Lymphocytes 15.8 % (21.0-51.0); %Monocytes 10.8 % (0.0-10.0); %Neutrophils 67.8 % (42.0-75.0); Hemoglobin 13.9 g/dL (14.0-18.0); Mean Corpuscular HGB CONC 34.2 g/dL (32.0-36.0); Mean Corpuscular Hemoglobin 33.3 pg (27.0-31.0); Mean Corpuscular Volume 97.3 fL (78.0-98.0); Mean Platelet Volume 7.3 fL (7.4-10.4); Platelet Count 201 thou/uL (130-400); RBC Distribution Width 12.8 % (11.5-14.5); Red Blood Cell (RBC) Count 4.17 mill/uL (4.70-6.10); White Blood Cell (WBC) Count 6.2 thou/uL (4.8-10.8)
[2021-01-26 09:25] LABS: Bilirubin Negative (Negative); Blood, Urine Negative (Negative); Clarity Clear (Clear); Glucose, Urine (Dipstick) Normal (Negative); Ketone, Urine Negative (Negative); Leukocyte Negative Leu/uL (Negative); Nitrite Negative (Negative); Protein, Urine (Dipstick) Negative (Neg-Trace); Specific Gravity, Urine 1.015 (1.002-1.036); Urobilinogen Normal mg/dL (Less than 2); pH, Urine 6.5 (5.0-9.0)
[2021-01-26 09:27] LABS: INR-International Normal Ratio 0.9; PTT 28.4 sec (22.9-36.1); Prothrombin Time 12.4 sec (12.0-14.7)
[2021-01-26 09:38] LABS: ALT (SGPT) Less than 7 U/L (8-55); AST (SGOT) 19 U/L (5-34); Albumin 3.8 g/dL (3.4-4.8); Alkaline Phosphatase 72 U/L (40-110); Anion Gap 15 mmol/L (10-20); BUN (Urea Nitrogen) 23 mg/dL (8.4-25.7); Bilirubin, Total 0.5 mg/dL (0.2-1.2); Calc. Creatinine Clearance 0 mL/min (70-130); Calcium 9.1 mg/dL (7.8-10.44); Carbon Dioxide 23 mmol/L (23-31); Chloride 106 mmol/L (98-107); Glucose 95 mg/dL (83-110); Potassium 4.6 mmol/L (3.5-5.1); Protein, Total 6.8 g/dL (5.8-8.1); Sodium 139 mmol/L (136-145)
== END 2021-01-26 10:28 | disposition left against medical advice (07) ==
LOC: ERS 07:59
DX: S01.01XA Laceration without foreign body of scalp, initial encounter (principal); R00.1 Bradycardia, unspecified; I25.10 Atherosclerotic heart disease of native coronary artery without angina pectoris; E78.5 Hyperlipidemia, unspecified; I10 Essential (primary) hypertension; G20 Parkinson's disease; G62.9 Polyneuropathy, unspecified; W20.8XXA Other cause of strike by thrown, projected or falling object, initial encounter; Y92.008 Other place in unspecified non-institutional (private) residence as the place of occurrence of the external cause
CPT/HCPCS: 70450; 71045; 72170; 80053; 81003; 85025; 85610; 85730; 93005

== ENCOUNTER 2021-03-05 08:41 | Emergency (ER) | payer BC ==
[2021-03-05 09:14] LABS: #Basophils 0.1 thou/uL (0.0-0.2); #Eosinphils 0.4 thou/uL (0.0-0.7); #Lymphocytes 1.1 thou/uL (1.20-3.40); #Monocytes 0.7 thou/uL (0.11-0.59); #Neutrophils 4.7 thou/uL (1.40-6.50); %Basophils 0.9 % (0.0-1.0); %Eosinophils 5.7 % (0.0-10.0); %Lymphocytes 15.7 % (21.0-51.0); %Neutrophils 67.7 % (42.0-75.0); Hemoglobin 13.9 g/dL (14.0-18.0); Mean Corpuscular HGB CONC 33.2 g/dL (32.0-36.0); Mean Corpuscular Hemoglobin 32.6 pg (27.0-31.0); Mean Corpuscular Volume 98.1 fL (78.0-98.0); Platelet Count 194 thou/uL (130-400); RBC Distribution Width 12.7 % (11.5-14.5); Red Blood Cell (RBC) Count 4.26 mill/uL (4.70-6.10)
[2021-03-05 09:34] LABS: ALT (SGPT) Less than 7 U/L (8-55); AST (SGOT) 14 U/L (5-34); Albumin 3.8 g/dL (3.4-4.8); Alkaline Phosphatase 66 U/L (40-110); Anion Gap 12 mmol/L (10-20); BUN (Urea Nitrogen) 25 mg/dL (8.4-25.7); Bilirubin, Total 0.5 mg/dL (0.2-1.2); Calc. Creatinine Clearance 0 mL/min (70-130); Carbon Dioxide 25 mmol/L (23-31); Chloride 105 mmol/L (98-107); Globulin 2.8 g/dL (2.4-3.5); Glucose 94 mg/dL (83-110); Potassium 3.8 mmol/L (3.5-5.1); Protein, Total 6.6 g/dL (5.8-8.1); Sodium 138 mmol/L (136-145)
[2021-03-05 11:01] LABS: Bilirubin Negative (Negative); Blood, Urine Negative (Negative); Clarity Clear (Clear); Glucose, Urine (Dipstick) Normal (Negative); Ketone, Urine Negative (Negative); Leukocyte Negative Leu/uL (Negative); Nitrite Negative (Negative); Protein, Urine (Dipstick) Negative (Neg-Trace); Specific Gravity, Urine 1.015 (1.002-1.036); Urobilinogen Normal mg/dL (Less than 2); pH, Urine 7.5 (5.0-9.0)
[2021-03-05 12:30] LABS: Troponin I Less than 0.010 ng/mL (< 0.028)
== END 2021-03-05 12:46 | disposition home or self-care (01) ==
LOC: ERS 08:41
DX: R41.82 Altered mental status, unspecified (principal); I10 Essential (primary) hypertension; I25.10 Atherosclerotic heart disease of native coronary artery without angina pectoris; E78.5 Hyperlipidemia, unspecified; G20 Parkinson's disease; Z79.899 Other long term (current) drug therapy
CPT/HCPCS: 36415; 70450; 72125; 80053; 81003; 82140; 84484; 85025; 93005

== ENCOUNTER 2021-08-15 11:49 | Emergency (ER) | payer BC, MEDICARE ==
[2021-08-15] MEDS ORDERED: Boostrix 0.5 ML (Tdap) VIAL ONE (12:08)
[2021-08-15] MEDS ORDERED: Lidocaine 1% (PF) 30 ML VIAL ONE (12:08)
[2021-08-15 13:16] LABS: #Lymphocytes 0.6 thou/uL (1.20-3.40); #Monocytes 1.2 thou/uL (0.11-0.59); #Neutrophils 11.7 thou/uL (1.40-6.50); %Basophils 0.3 % (0.0-1.0); %Eosinophils 0.2 % (0.0-10.0); %Lymphocytes 4.7 % (21.0-51.0); %Neutrophils 85.8 % (42.0-75.0); Hemoglobin 13.4 g/dL (14.0-18.0); Mean Corpuscular HGB CONC 31.7 g/dL (32.0-36.0); Mean Corpuscular Hemoglobin 31.3 pg (27.0-31.0); Mean Corpuscular Volume 98.7 fL (78.0-98.0); Mean Platelet Volume 7.4 fL (7.4-10.4); Platelet Count 199 thou/uL (130-400); RBC Distribution Width 12.9 % (11.5-14.5); Red Blood Cell (RBC) Count 4.27 mill/uL (4.70-6.10); White Blood Cell (WBC) Count 13.6 thou/uL (4.8-10.8)
[2021-08-15 13:37] LABS: ALT (SGPT) Less than 7 U/L (8-55); AST (SGOT) 16 U/L (5-34); Albumin 3.8 g/dL (3.4-4.8); Alkaline Phosphatase 68 U/L (40-110); Anion Gap 12 mmol/L (10-20); BUN (Urea Nitrogen) 24 mg/dL (8.4-25.7); Bilirubin, Total 0.7 mg/dL (0.2-1.2); Calc. Creatinine Clearance 0 mL/min (70-130); Calcium 9.2 mg/dL (7.8-10.44); Carbon Dioxide 25 mmol/L (23-31); Chloride 107 mmol/L (98-107); Globulin 2.7 g/dL (2.4-3.5); Glucose 117 mg/dL (83-110); Potassium 4.6 mmol/L (3.5-5.1); Protein, Total 6.5 g/dL (5.8-8.1); Sodium 139 mmol/L (136-145)
[2021-08-15] MEDS ORDERED: Triple Antibiotic Oint 1 GM Packet ONE (14:58)
[2021-08-15] MEDS ORDERED: Lidocaine 1%/Epinephrine 1:100K 10 ML VIAL IJ SCH (15:15)
== END 2021-08-15 15:06 | disposition home or self-care (01) ==
LOC: ERS 11:49
DX: S01.01XA Laceration without foreign body of scalp, initial encounter (principal); E78.5 Hyperlipidemia, unspecified; I10 Essential (primary) hypertension; W19.XXXA Unspecified fall, initial encounter
CPT/HCPCS: 12002; 36415; 70450; 71045; 72125; 80053; 85025; 90471; 90715; 93005; J2001

== ENCOUNTER 2021-08-17 12:55 | Inpatient (IN) | payer MEDICARE, BC ==
[2021-08-17 13:30] LABS: #Lymphocytes 0.6 thou/uL (1.20-3.40); #Neutrophils 10.6 thou/uL (1.40-6.50); %Basophils 0.1 % (0.0-1.0); %Eosinophils 0.3 % (0.0-10.0); %Lymphocytes 4.6 % (21.0-51.0); %Monocytes 8.3 % (0.0-10.0); %Neutrophils 86.8 % (42.0-75.0); Hemoglobin 12.8 g/dL (14.0-18.0); Mean Corpuscular Hemoglobin 31.9 pg (27.0-31.0); Mean Corpuscular Volume 99.5 fL (78.0-98.0); Mean Platelet Volume 7.6 fL (7.4-10.4); Platelet Count 182 thou/uL (130-400); RBC Distribution Width 13.1 % (11.5-14.5); Red Blood Cell (RBC) Count 4.03 mill/uL (4.70-6.10); White Blood Cell (WBC) Count 12.2 thou/uL (4.8-10.8)
[2021-08-17 14:12] LABS: ALT (SGPT) Less than 7 U/L (8-55); AST (SGOT) 17 U/L (5-34); Albumin 3.6 g/dL (3.4-4.8); Alkaline Phosphatase 70 U/L (40-110); Anion Gap 15 mmol/L (10-20); BUN (Urea Nitrogen) 29 mg/dL (8.4-25.7); Bilirubin, Total 0.5 mg/dL (0.2-1.2); CK (CPK) 78 U/L (30-200); Calc. Creatinine Clearance 0 mL/min (70-130); Calcium 8.5 mg/dL (7.8-10.44); Carbon Dioxide 22 mmol/L (23-31); Chloride 108 mmol/L (98-107); Globulin 2.5 g/dL (2.4-3.5); Glucose 117 mg/dL (83-110); Potassium 4.4 mmol/L (3.5-5.1); Protein, Total 6.1 g/dL (5.8-8.1); Sodium 141 mmol/L (136-145)
[2021-08-17 14:16] LABS: Bacteria/HPF None Seen HPF (None Seen); Bilirubin Negative (Negative); Blood, Urine Negative (Negative); Clarity Clear (Clear); Glucose, Urine (Dipstick) 50 mg/dL (Negative); Ketone, Urine Negative (Negative); Leukocyte Negative Leu/uL (Negative); Nitrite Negative (Negative); Protein, Urine (Dipstick) 30 mg/dL (Neg-Trace); RBC/HPF 0-3 HPF (0-3); Specific Gravity, Urine 1.024 (1.002-1.036); Squamous Epithelial None Seen HPF (0-3); Urobilinogen Normal mg/dL (Less than 2); WBC/HPF 0-3 HPF (0-3)
[2021-08-17] MEDS ORDERED: Cefepime 2 GM VIAL ONE (16:53)
[2021-08-17] MEDS ORDERED: VANCOMYCIN 2 GRAM/500 ML BAG 2 GM in Premix Bag 1 BAG IVPB SCH (17:00)
[2021-08-17] MEDS ORDERED: CEFAZOLIN 1 GM VIAL ONE (17:12)
[2021-08-17] MEDS ORDERED: Carbidopa/Levodopa 25-100 mg Tablet PO SCH (17:30)
[2021-08-17] MEDS ORDERED: Bisacodyl 5 MG TAB PO PRN (19:21)
[2021-08-17] MEDS ORDERED: Calcium Carbonate 500 MG ChewTAB PO PRN (19:21)
[2021-08-17] MEDS ORDERED: Ondansetron PF 4 MG/2 ML Vial IVP PRN (19:21)
[2021-08-17] MEDS ORDERED: Ondansetron ODT 4 MG TAB PO PRN (19:21)
[2021-08-17] MEDS ORDERED: Senokot S 8.6-50 MG TAB PO PRN (19:21)
[2021-08-17 19:55] LABS: Hemoglobin A1c 6.5 % (4.0-6.0)
[2021-08-17 20:41] VITALS: BMI 22.8
[2021-08-17] MEDS: Cefepime 2 GM in Sodium Chloride 0.9% 100 ML IVPB SCH (21:56)
[2021-08-18 05:24] LABS: #Eosinphils 0.1 thou/uL (0.0-0.7); #Lymphocytes 0.7 thou/uL (1.20-3.40); #Neutrophils 9.5 thou/uL (1.40-6.50); %Basophils 0.2 % (0.0-1.0); %Eosinophils 0.7 % (0.0-10.0); %Lymphocytes 6.3 % (21.0-51.0); %Neutrophils 83.8 % (42.0-75.0); Mean Corpuscular HGB CONC 33.7 g/dL (32.0-36.0); Mean Corpuscular Hemoglobin 33.2 pg (27.0-31.0); Mean Corpuscular Volume 98.4 fL (78.0-98.0); Mean Platelet Volume 7.7 fL (7.4-10.4); Platelet Count 186 thou/uL (130-400); RBC Distribution Width 12.9 % (11.5-14.5); Red Blood Cell (RBC) Count 3.93 mill/uL (4.70-6.10); White Blood Cell (WBC) Count 11.3 thou/uL (4.8-10.8)
[2021-08-18 05:44] LABS: Prothrombin Time 13.5 sec (12.0-14.7)
[2021-08-18 05:45] LABS: PTT 38.3 sec (22.9-36.1)
[2021-08-18 05:52] LABS: Anion Gap 12 mmol/L (10-20); BUN (Urea Nitrogen) 21 mg/dL (8.4-25.7); CRP (Inflammatory) 14.47 mg/dL (= or < 0.5); Calc. Creatinine Clearance 59 mL/min (70-130); Calcium 8.5 mg/dL (7.8-10.44); Carbon Dioxide 23 mmol/L (23-31); Cardiac Risk 2.9 (Less than 4.5); Chloride 107 mmol/L (98-107); Cholesterol 153 mg/dl (< 200 Desired); Glucose 114 mg/dL (83-110); HDL Cholesterol 53 mg/dL (>60 Neg Risk); LDL Cholesterol, Calculated 89 mg/dL; Potassium 4.1 mmol/L (3.5-5.1); Sodium 138 mmol/L (136-145); Triglycerides 53 mg/dL (Less than 150)
[2021-08-18] MEDS: Cefepime 2 GM in Sodium Chloride 0.9% 100 ML IVPB SCH ×2 (09:24→20:56)
[2021-08-18] MEDS ORDERED: Carbidopa/Levodopa 25-100 mg Tablet PO SCH ×2 (11:00)
[2021-08-18] MEDS: Carbidopa/Levodopa 25-100 mg Tablet PO SCH ×3 (11:17→20:58)
[2021-08-18] MEDS ORDERED: Lorazepam 2 MG/ML VIAL ONE (14:37)
[2021-08-18] MEDS ORDERED: Lorazepam 2 MG/ML VIAL SLOW IVP SCH (14:45)
[2021-08-18 16:27] LABS: SARS-CoV-2 PCR by NAA Not Detected (NotDetected)
[2021-08-18] MEDS: Vancomycin 1.5 GRAM/300 ML BAG 1.5 GM in Premix Bag 1 BAG IVPB SCH (20:55)
[2021-08-19 05:15] LABS: #Eosinphils 0.1 thou/uL (0.0-0.7); #Lymphocytes 0.8 thou/uL (1.20-3.40); #Neutrophils 7.5 thou/uL (1.40-6.50); %Basophils 0.3 % (0.0-1.0); %Eosinophils 1.2 % (0.0-10.0); %Lymphocytes 8.7 % (21.0-51.0); %Monocytes 10.4 % (0.0-10.0); %Neutrophils 79.3 % (42.0-75.0); Hemoglobin 12.8 g/dL (14.0-18.0); Mean Corpuscular HGB CONC 33.3 g/dL (32.0-36.0); Mean Corpuscular Hemoglobin 33.2 pg (27.0-31.0); Mean Corpuscular Volume 99.6 fL (78.0-98.0); Mean Platelet Volume 7.5 fL (7.4-10.4); Platelet Count 206 thou/uL (130-400); Red Blood Cell (RBC) Count 3.86 mill/uL (4.70-6.10); White Blood Cell (WBC) Count 9.5 thou/uL (4.8-10.8)
[2021-08-19 05:37] LABS: Anion Gap 11 mmol/L (10-20); BUN (Urea Nitrogen) 17 mg/dL (8.4-25.7); Calc. Creatinine Clearance 65 mL/min (70-130); Calcium 8.7 mg/dL (7.8-10.44); Carbon Dioxide 24 mmol/L (23-31); Chloride 104 mmol/L (98-107); Glucose 106 mg/dL (83-110); Sodium 135 mmol/L (136-145)
[2021-08-19] MEDS: Carbidopa/Levodopa 25-100 mg Tablet PO SCH ×5 (06:36→20:45)
[2021-08-19] MEDS: Cefepime 2 GM in Sodium Chloride 0.9% 100 ML IVPB SCH ×2 (10:29→20:39)
[2021-08-19] MEDS: Famotidine 20 MG TAB PO SCH (20:39)
[2021-08-19] MEDS: Vancomycin 1.5 GRAM/300 ML BAG 1.5 GM in Premix Bag 1 BAG IVPB SCH (20:40)
[2021-08-20] MEDS: Carbidopa/Levodopa 25-100 mg Tablet PO SCH ×5 (06:14→17:26)
[2021-08-20 06:52] LABS: #Eosinphils 0.2 thou/uL (0.0-0.7); #Lymphocytes 0.9 thou/uL (1.20-3.40); #Monocytes 0.9 thou/uL (0.11-0.59); #Neutrophils 6.6 thou/uL (1.40-6.50); %Basophils 0.3 % (0.0-1.0); %Eosinophils 1.8 % (0.0-10.0); %Lymphocytes 10.4 % (21.0-51.0); %Neutrophils 77.6 % (42.0-75.0); Hemoglobin 13.2 g/dL (14.0-18.0); Mean Corpuscular HGB CONC 33.3 g/dL (32.0-36.0); Mean Corpuscular Hemoglobin 32.6 pg (27.0-31.0); Mean Corpuscular Volume 97.9 fL (78.0-98.0); Mean Platelet Volume 7.3 fL (7.4-10.4); Platelet Count 207 thou/uL (130-400); RBC Distribution Width 12.7 % (11.5-14.5); Red Blood Cell (RBC) Count 4.05 mill/uL (4.70-6.10); White Blood Cell (WBC) Count 8.5 thou/uL (4.8-10.8)
[2021-08-20 07:10] LABS: Anion Gap 13 mmol/L (10-20); BUN (Urea Nitrogen) 15 mg/dL (8.4-25.7); Calc. Creatinine Clearance 61 mL/min (70-130); Calcium 8.7 mg/dL (7.8-10.44); Carbon Dioxide 22 mmol/L (23-31); Chloride 106 mmol/L (98-107); Glucose 103 mg/dL (83-110); Potassium 4.3 mmol/L (3.5-5.1); Sodium 137 mmol/L (136-145)
[2021-08-20] MEDS: Famotidine 20 MG TAB PO SCH ×2 (08:11→21:22)
[2021-08-20] MEDS: Cefepime 2 GM in Sodium Chloride 0.9% 100 ML IVPB SCH ×2 (08:12→21:22)
[2021-08-20] MEDS: Vancomycin 1 GM in Premix Bag 1 BAG IVPB SCH ×2 (08:33→21:22)
[2021-08-20] MEDS ORDERED: Polyethylene Glycol 3350 17 GM Packet PO PRN (16:28)
[2021-08-21] MEDS: Acetaminophen 325 MG TAB PO PRN (01:49)
[2021-08-21] MEDS ORDERED: hydrOXYzine 25 MG TAB PO SCH (02:15)
[2021-08-21 06:12] LABS: #Eosinphils 0.2 thou/uL (0.0-0.7); #Lymphocytes 1.7 thou/uL (1.20-3.40); #Neutrophils 7.1 thou/uL (1.40-6.50); %Basophils 0.4 % (0.0-1.0); %Lymphocytes 17.1 % (21.0-51.0); %Monocytes 9.8 % (0.0-10.0); %Neutrophils 70.8 % (42.0-75.0); Hemoglobin 13.5 g/dL (14.0-18.0); Mean Corpuscular HGB CONC 32.6 g/dL (32.0-36.0); Mean Corpuscular Hemoglobin 32.7 pg (27.0-31.0); Mean Platelet Volume 7.3 fL (7.4-10.4); Platelet Count 244 thou/uL (130-400); RBC Distribution Width 12.8 % (11.5-14.5); Red Blood Cell (RBC) Count 4.13 mill/uL (4.70-6.10)
[2021-08-21] MEDS: Carbidopa/Levodopa 25-100 mg Tablet PO SCH ×4 (06:33→18:03)
[2021-08-21 06:38] LABS: Anion Gap 12 mmol/L (10-20); BUN (Urea Nitrogen) 18 mg/dL (8.4-25.7); Calc. Creatinine Clearance 56 mL/min (70-130); Calcium 8.9 mg/dL (7.8-10.44); Carbon Dioxide 21 mmol/L (23-31); Chloride 106 mmol/L (98-107); Glucose 106 mg/dL (83-110); Magnesium 2.1 mg/dL (1.6-2.6); Potassium 4.4 mmol/L (3.5-5.1); Sodium 135 mmol/L (136-145)
[2021-08-21] MEDS: Famotidine 20 MG TAB PO SCH ×2 (08:05→21:15)
[2021-08-21 08:22] LABS: Vancomycin, Trough 15.5 ug/mL
[2021-08-21] MEDS: Vancomycin 1 GM in Premix Bag 1 BAG IVPB SCH ×2 (09:05→21:15)
[2021-08-21] MEDS: Cefepime 2 GM in Sodium Chloride 0.9% 100 ML IVPB SCH ×2 (10:58→21:15)
[2021-08-21] MEDS ORDERED: hydrALAZINE 20 MG/ML VIAL SLOW IVP PRN (11:40)
[2021-08-21] MEDS ORDERED: fentaNYL Citrate/PF 100 MCG/2 ML SYRINGE ONE (13:20)
[2021-08-21] MEDS ORDERED: Lidocaine 1% PF 5 ML VIAL ONE (14:09)
[2021-08-21] MEDS ORDERED: PROPOFOL 200 MG/20 ML VIAL ONE (14:09)
[2021-08-21] MEDS ORDERED: Xylocaine 1% w/ Epi 1:100K 10 ML VIAL ONE (14:38)
[2021-08-22 05:41] LABS: #Eosinphils 0.2 thou/uL (0.0-0.7); #Monocytes 0.9 thou/uL (0.11-0.59); %Basophils 0.3 % (0.0-1.0); %Eosinophils 2.6 % (0.0-10.0); %Lymphocytes 10.7 % (21.0-51.0); %Monocytes 9.4 % (0.0-10.0); %Neutrophils 77.1 % (42.0-75.0); Hemoglobin 13.1 g/dL (14.0-18.0); Mean Corpuscular HGB CONC 33.1 g/dL (32.0-36.0); Mean Corpuscular Volume 96.8 fL (78.0-98.0); Mean Platelet Volume 2.7 fL (7.4-10.4); Platelet Count 241 thou/uL (130-400); Red Blood Cell (RBC) Count 4.09 mill/uL (4.70-6.10); White Blood Cell (WBC) Count 9.1 thou/uL (4.8-10.8)
[2021-08-22 05:58] LABS: Anion Gap 14 mmol/L (10-20); BUN (Urea Nitrogen) 17 mg/dL (8.4-25.7); Calc. Creatinine Clearance 66 mL/min (70-130); Carbon Dioxide 22 mmol/L (23-31); Chloride 106 mmol/L (98-107); Glucose 102 mg/dL (83-110); Potassium 4.3 mmol/L (3.5-5.1); Sodium 138 mmol/L (136-145)
[2021-08-22] MEDS: Carbidopa/Levodopa 25-100 mg Tablet PO SCH ×4 (07:25→18:09)
[2021-08-22] MEDS: Vancomycin 1 GM in Premix Bag 1 BAG IVPB SCH ×2 (08:07→23:17)
[2021-08-22] MEDS: Famotidine 20 MG TAB PO SCH ×2 (08:07→22:26)
[2021-08-22] MEDS: Cefepime 2 GM in Sodium Chloride 0.9% 100 ML IVPB SCH ×2 (09:17→22:26)
[2021-08-23 05:47] LABS: #Eosinphils 0.3 thou/uL (0.0-0.7); #Monocytes 1.1 thou/uL (0.11-0.59); #Neutrophils 7.5 thou/uL (1.40-6.50); %Basophils 0.4 % (0.0-1.0); %Eosinophils 2.8 % (0.0-10.0); %Lymphocytes 10.3 % (21.0-51.0); %Neutrophils 75.6 % (42.0-75.0); Hemoglobin 13.6 g/dL (14.0-18.0); Mean Corpuscular HGB CONC 32.5 g/dL (32.0-36.0); Mean Corpuscular Hemoglobin 31.9 pg (27.0-31.0); Mean Corpuscular Volume 97.9 fL (78.0-98.0); Mean Platelet Volume 7.2 fL (7.4-10.4); Platelet Count 253 thou/uL (130-400); RBC Distribution Width 12.7 % (11.5-14.5); Red Blood Cell (RBC) Count 4.27 mill/uL (4.70-6.10); White Blood Cell (WBC) Count 9.9 thou/uL (4.8-10.8)
[2021-08-23 06:11] LABS: Anion Gap 11 mmol/L (10-20); BUN (Urea Nitrogen) 21 mg/dL (8.4-25.7); Calc. Creatinine Clearance 63 mL/min (70-130); Calcium 9.1 mg/dL (7.8-10.44); Carbon Dioxide 24 mmol/L (23-31); Chloride 103 mmol/L (98-107); Glucose 103 mg/dL (83-110); Magnesium 2.1 mg/dL (1.6-2.6); Potassium 4.2 mmol/L (3.5-5.1); Sodium 134 mmol/L (136-145)
[2021-08-23] MEDS: Carbidopa/Levodopa 25-100 mg Tablet PO SCH ×4 (06:53→18:55)
[2021-08-23 08:41] LABS: Vancomycin, Trough 21.2 ug/mL
[2021-08-23] MEDS: Cefepime 2 GM in Sodium Chloride 0.9% 100 ML IVPB SCH ×2 (09:07→21:48)
[2021-08-23] MEDS: Famotidine 20 MG TAB PO SCH ×2 (09:09→21:48)
[2021-08-23] MEDS: Amlodipine 5 MG TAB PO SCH (09:09)
[2021-08-23] MEDS: Vancomycin 1 GM in Premix Bag 1 BAG IVPB SCH ×2 (09:43→22:38)
[2021-08-24 06:08] LABS: #Eosinphils 0.2 thou/uL (0.0-0.7); #Lymphocytes 1.2 thou/uL (1.20-3.40); %Basophils 0.3 % (0.0-1.0); %Eosinophils 2.7 % (0.0-10.0); %Lymphocytes 13.7 % (21.0-51.0); %Monocytes 11.8 % (0.0-10.0); %Neutrophils 71.4 % (42.0-75.0); Hemoglobin 12.9 g/dL (14.0-18.0); Mean Corpuscular HGB CONC 32.2 g/dL (32.0-36.0); Mean Corpuscular Hemoglobin 31.7 pg (27.0-31.0); Mean Corpuscular Volume 98.5 fL (78.0-98.0); Mean Platelet Volume 7.2 fL (7.4-10.4); Platelet Count 265 thou/uL (130-400); RBC Distribution Width 12.6 % (11.5-14.5); Red Blood Cell (RBC) Count 4.06 mill/uL (4.70-6.10); White Blood Cell (WBC) Count 8.4 thou/uL (4.8-10.8)
[2021-08-24] MEDS: Carbidopa/Levodopa 25-100 mg Tablet PO SCH ×4 (06:20→18:38)
[2021-08-24 06:28] LABS: Anion Gap 14 mmol/L (10-20); BUN (Urea Nitrogen) 20 mg/dL (8.4-25.7); Calc. Creatinine Clearance 60 mL/min (70-130); Calcium 9.1 mg/dL (7.8-10.44); Carbon Dioxide 22 mmol/L (23-31); Chloride 105 mmol/L (98-107); Glucose 99 mg/dL (83-110); Magnesium 2.1 mg/dL (1.6-2.6); Potassium 4.6 mmol/L (3.5-5.1); Sodium 136 mmol/L (136-145)
[2021-08-24] MEDS: Cefepime 2 GM in Sodium Chloride 0.9% 100 ML IVPB SCH ×2 (09:07→21:07)
[2021-08-24] MEDS: Amlodipine 5 MG TAB PO SCH (09:07)
[2021-08-24] MEDS: Famotidine 20 MG TAB PO SCH (09:07)
[2021-08-24] MEDS: Vancomycin 1 GM in Premix Bag 1 BAG IVPB SCH ×2 (09:12→21:07)
[2021-08-24] MEDS ORDERED: Polyethylene Glycol 3350 17 GM Packet PO SCH (21:00)
[2021-08-24] MEDS: Saccharomyces boulardii 250 MG CAP PO SCH ×2 (21:06→21:32)
[2021-08-24] MEDS: Bisacodyl 10 MG SUPP PR SCH (21:07)
[2021-08-24] MEDS: Senokot S 8.6-50 MG TAB PO SCH ×2 (21:07→21:32)
[2021-08-25] MEDS: Carbidopa/Levodopa 25-100 mg Tablet PO SCH ×5 (06:28→18:37)
[2021-08-25 06:40] LABS: #Basophils 0.1 thou/uL (0.0-0.2); #Eosinphils 0.2 thou/uL (0.0-0.7); #Lymphocytes 0.8 thou/uL (1.20-3.40); #Monocytes 1.1 thou/uL (0.11-0.59); #Neutrophils 8.4 thou/uL (1.40-6.50); %Basophils 0.5 % (0.0-1.0); %Eosinophils 1.8 % (0.0-10.0); %Lymphocytes 7.8 % (21.0-51.0); %Monocytes 10.7 % (0.0-10.0); %Neutrophils 79.2 % (42.0-75.0); Hemoglobin 13.3 g/dL (14.0-18.0); Mean Corpuscular Hemoglobin 31.2 pg (27.0-31.0); Mean Platelet Volume 7.6 fL (7.4-10.4); Platelet Count 263 thou/uL (130-400); RBC Distribution Width 12.7 % (11.5-14.5); Red Blood Cell (RBC) Count 4.27 mill/uL (4.70-6.10); White Blood Cell (WBC) Count 10.6 thou/uL (4.8-10.8)
[2021-08-25 06:44] LABS: Anion Gap 12 mmol/L (10-20); BUN (Urea Nitrogen) 22 mg/dL (8.4-25.7); Calc. Creatinine Clearance 62 mL/min (70-130); Calcium 8.9 mg/dL (7.8-10.44); Carbon Dioxide 23 mmol/L (23-31); Chloride 108 mmol/L (98-107); Glucose 110 mg/dL (83-110); Potassium 4.7 mmol/L (3.5-5.1); Sodium 138 mmol/L (136-145)
[2021-08-25] MEDS: Cefepime 2 GM in Sodium Chloride 0.9% 100 ML IVPB SCH ×2 (08:15→20:45)
[2021-08-25] MEDS: Amlodipine 5 MG TAB PO SCH (08:17)
[2021-08-25] MEDS: Senokot S 8.6-50 MG TAB PO SCH (08:18)
[2021-08-25] MEDS: Vancomycin 1 GM in Premix Bag 1 BAG IVPB SCH (09:20)
[2021-08-25 11:37] LABS: Fungus Stain Final report (.)
[2021-08-25] MEDS ORDERED: Polyethylene Glycol 3350 17 GM Packet PO PRN (13:14)
[2021-08-25] MEDS: Bisacodyl 10 MG SUPP PR SCH (20:47)
[2021-08-25] MEDS: Saccharomyces boulardii 250 MG CAP PO SCH (20:47)
[2021-08-25] MEDS: Vancomycin HCl 750 MG in Sodium Chloride 0.9% 250 ML 250 ML IVPB SCH (21:42)
[2021-08-26] MEDS: Carbidopa/Levodopa 25-100 mg Tablet PO SCH ×4 (07:00→19:35)
[2021-08-26] MEDS: Cefepime 2 GM in Sodium Chloride 0.9% 100 ML IVPB SCH (09:11)
[2021-08-26] MEDS: Amlodipine 5 MG TAB PO SCH (09:11)
[2021-08-26] MEDS: Vancomycin HCl 750 MG in Sodium Chloride 0.9% 250 ML 250 ML IVPB SCH (11:08)
[2021-08-26 12:08] LABS: SARS-CoV-2 PCR by NAA Not Detected (NotDetected)
[2021-08-26] MEDS ORDERED: Amlodipine 5 MG TAB PO PRN (19:27)
[2021-08-26] MEDS ORDERED: hydrALAZINE 20 MG/ML VIAL SLOW IVP PRN (19:28)
[2021-08-26] MEDS: Saccharomyces boulardii 250 MG CAP PO SCH (21:20)
[2021-08-26] MEDS: Rifampin 300 MG CAP PO SCH (21:20)
[2021-08-27] MEDS: Carbidopa/Levodopa 25-100 mg Tablet PO SCH ×4 (06:21→19:00)
[2021-08-27] MEDS: Rifampin 300 MG CAP PO SCH ×2 (09:01→21:15)
[2021-08-27] MEDS ORDERED: Docusate 100 MG CAP PO SCH (21:00)
[2021-08-27] MEDS: Senokot S 8.6-50 MG TAB PO SCH (21:16)
[2021-08-27] MEDS: Saccharomyces boulardii 250 MG CAP PO SCH (21:16)
[2021-08-28] MEDS: Carbidopa/Levodopa 25-100 mg Tablet PO SCH ×2 (06:10→11:30)
[2021-08-28] MEDS: Acetaminophen 325 MG TAB PO PRN (06:10)
[2021-08-28] MEDS: Rifampin 300 MG CAP PO SCH (09:49)
[2021-08-28] MEDS: Senokot S 8.6-50 MG TAB PO SCH (09:49)
[2021-08-28 13:11] VITALS: BP 167/75; TEMP 97.3
== END 2021-08-28 13:25 | DRG 853 ==
LOC: SUATTDRO 12:55 → ERS 12:55 → 2NO 18:08 → OBSVTOIN 08-18 18:34 → SURG B 08-19 23:49
PROVIDERS: ADMIT Internal Medicine; ATTEND Internal Medicine
PROC: 3E03329 Introduction of Other Anti-infective into Peripheral Vein, Percutaneous Approach (ICD-10-PCS; 2021-08-18)
PROC: 0M940ZZ Drainage of Left Elbow Bursa and Ligament, Open Approach (ICD-10-PCS; principal; 2021-08-21)
DX: A41.01 Sepsis due to Methicillin susceptible Staphylococcus aureus (principal); G92.8 Other toxic encephalopathy; E87.1 Hypo-osmolality and hyponatremia; E87.2 Acidosis; L03.114 Cellulitis of left upper limb; Q61.3 Polycystic kidney, unspecified; L02.414 Cutaneous abscess of left upper limb; Z66 Do not resuscitate; Z20.822 Contact with and (suspected) exposure to COVID-19; M71.122 Other infective bursitis, left elbow; I25.10 Atherosclerotic heart disease of native coronary artery without angina pectoris; G20 Parkinson's disease; I95.1 Orthostatic hypotension; I10 Essential (primary) hypertension; N40.0 Benign prostatic hyperplasia without lower urinary tract symptoms; F02.80 Dementia in other diseases classified elsewhere, unspecified severity, without behavioral disturbance, psychotic disturbance, mood disturbance, and anxiety; S50.312A Abrasion of left elbow, initial encounter; W18.30XA Fall on same level, unspecified, initial encounter; I08.1 Rheumatic disorders of both mitral and tricuspid valves; E11.22 Type 2 diabetes mellitus with diabetic chronic kidney disease; K59.00 Constipation, unspecified; D53.9 Nutritional anemia, unspecified; R29.6 Repeated falls; Z91.81 History of falling; Z78.1 Physical restraint status; Z28.21 Immunization not carried out because of patient refusal; Z95.1 Presence of aortocoronary bypass graft; Z79.899 Other long term (current) drug therapy; Z98.890 Other specified postprocedural states; Z90.49 Acquired absence of other specified parts of digestive tract
CPT/HCPCS: 36415; 70450; 71045; 72125; 72170; 80048; 80053; 80061; 80202; 81003; 81015; 82550; 82607; 82746; 83036; 83605; 83735; 84443; 84484; 85025; 85610; 85652; 85730; 86140; 86850; 86900; 86901; 87040; 87070; 87077; 87102; 87186; 87205; 87206; 93005; 93306; 94760; 96365; 96367; 96375; 96376; G0378; J0360; J0690; J0692; J2060; J2704; J3370; J3490; J7050; U0003; U0005

== ENCOUNTER 2021-10-03 09:16 | Inpatient (IN) | payer MEDICARE, BC ==
[2021-10-03 10:07] LABS: #Lymphocytes 0.5 thou/uL (1.20-3.40); #Monocytes 0.7 thou/uL (0.11-0.59); #Neutrophils 3.4 thou/uL (1.40-6.50); %Basophils 0.2 % (0.0-1.0); %Eosinophils 0.2 % (0.0-10.0); %Lymphocytes 10.3 % (21.0-51.0); %Monocytes 14.4 % (0.0-10.0); %Neutrophils 74.9 % (42.0-75.0); Hemoglobin 13.1 g/dL (14.0-18.0); Mean Corpuscular HGB CONC 32.2 g/dL (32.0-36.0); Mean Corpuscular Hemoglobin 30.9 pg (27.0-31.0); Mean Platelet Volume 7.3 fL (7.4-10.4); Platelet Count 217 thou/uL (130-400); RBC Distribution Width 13.5 % (11.5-14.5); Red Blood Cell (RBC) Count 4.26 mill/uL (4.70-6.10); White Blood Cell (WBC) Count 4.5 thou/uL (4.8-10.8)
[2021-10-03 10:24] LABS: ALT (SGPT) 8 U/L (8-55); AST (SGOT) 19 U/L (5-34); Acetaminophen Less than 10.0 mcg/mL (10.0-30.0); Albumin 3.4 g/dL (3.4-4.8); Alcohol Less than 10 mg/dL (Less than 10); Alkaline Phosphatase 58 U/L (40-110); Anion Gap 14 mmol/L (10-20); BUN (Urea Nitrogen) 29 mg/dL (8.4-25.7); Bilirubin, Total 0.2 mg/dL (0.2-1.2); CK (CPK) 266 U/L (30-200); Calc. Creatinine Clearance 0 mL/min (70-130); Calcium 8.5 mg/dL (7.8-10.44); Carbon Dioxide 21 mmol/L (23-31); Chloride 106 mmol/L (98-107); Estimated GFR 67; Globulin 3.1 g/dL (2.4-3.5); Glucose 111 mg/dL (83-110); Lipase 20 U/L (8-78); Potassium 4.4 mmol/L (3.5-5.1); Protein, Total 6.5 g/dL (5.8-8.1); Salicylate Less than 8.0 mg/dL (15.0-30.0); Sodium 137 mmol/L (136-145)
[2021-10-03 12:06] LABS: SARS-CoV-2 NAA Rapid Test DETECTED (NotDetected)
[2021-10-03 12:51] LABS: Bacteria/HPF 3+ HPF (None Seen); Bilirubin Negative (Negative); Blood, Urine 1+ (Negative); Clarity Clear (Clear); Glucose, Urine (Dipstick) Normal (Negative); Ketone, Urine Negative (Negative); Leukocyte Negative Leu/uL (Negative); Nitrite Negative (Negative); Protein, Urine (Dipstick) 30 mg/dL (Neg-Trace); Specific Gravity, Urine 1.023 (1.002-1.036); Squamous Epithelial 0-3 HPF (0-3); Urobilinogen Normal mg/dL (Less than 2); WBC/HPF 0-3 HPF (0-3); pH, Urine 5.5 (5.0-9.0)
[2021-10-03 12:52] LABS: Amphetamine Not Detected (NotDetected); Barbiturates Screen Not Detected (NotDetected); Benzodiazepine Screen Not Detected (NotDetected); Cocaine Metabolite Screen Not Detected (NotDetected); Methadone Not Detected (NotDetected); Methamphetamine Not Detected (NotDetected); Opiate Screen Not Detected (NotDetected); Oxycodone Screen Not Detected (NotDetected); Phencyclidine (PCP) Not Detected (NotDetected); THC/Cannabinoid Screen Not Detected (NotDetected); Tricyclic Screen Not Detected (NotDetected)
[2021-10-03] MEDS ORDERED: Benzonatate 100 MG CAP PO PRN (13:42)
[2021-10-03] MEDS ORDERED: Ondansetron PF 4 MG/2 ML Vial IVP PRN (13:42)
[2021-10-03] MEDS ORDERED: Acetaminophen 500 MG TAB PO PRN (13:42)
[2021-10-03] MEDS ORDERED: hydrALAZINE 20 MG/ML VIAL SLOW IVP PRN (13:42)
[2021-10-03] MEDS ORDERED: Ondansetron ODT 4 MG TAB PO PRN (13:42)
[2021-10-03] MEDS ORDERED: Polyethylene Glycol 3350 17 GM Packet PO PRN (13:56)
[2021-10-03 15:12] VITALS: BMI 22.9
[2021-10-03] MEDS: cefTRIAXone\\ROCEPHIN 1 GM in Sodium Chloride 0.9% 100 ML IVPB SCH (16:46)
[2021-10-03] MEDS: Sodium Chloride 0.9% 1,000 ML IV SCH (16:46)
[2021-10-03] MEDS: Carbidopa/Levodopa 25-100 mg Tablet PO SCH ×2 (16:46→19:51)
[2021-10-03] MEDS: Cholecalciferol 1,000 UNITS (25 MCG) TAB PO SCH (19:51)
[2021-10-03] MEDS: Famotidine/PF 20 mg/2ml Vial SLOW IVP SCH (19:51)
[2021-10-04] MEDS: Sodium Chloride 0.9% 1,000 ML IV SCH ×3 (02:00→15:49)
[2021-10-04 06:58] LABS: Hemoglobin 13.3 g/dL (14.0-18.0); Mean Corpuscular HGB CONC 32.1 g/dL (32.0-36.0); Mean Corpuscular Volume 96.7 fL (78.0-98.0); Mean Platelet Volume 7.3 fL (7.4-10.4); Platelet Count 203 thou/uL (130-400); RBC Distribution Width 13.2 % (11.5-14.5); Red Blood Cell (RBC) Count 4.28 mill/uL (4.70-6.10); White Blood Cell (WBC) Count 3.8 thou/uL (4.8-10.8)
[2021-10-04 07:15] LABS: ALT (SGPT) 14 U/L (8-55); AST (SGOT) 20 U/L (5-34); Albumin 3.3 g/dL (3.4-4.8); Alkaline Phosphatase 53 U/L (40-110); Anion Gap 14 mmol/L (10-20); BUN (Urea Nitrogen) 22 mg/dL (8.4-25.7); Band 17 % (5-11); Bilirubin, Total 0.3 mg/dL (0.2-1.2); Calc. Creatinine Clearance 62 mL/min (70-130); Calcium 8.6 mg/dL (7.8-10.44); Carbon Dioxide 21 mmol/L (23-31); Chloride 107 mmol/L (98-107); Estimated GFR 88; Glucose 85 mg/dL (83-110); Lymphocytes 15 % (21-51); MDiff Complete? YES; Monocytes 13 % (0-10); Neutrophil 48 % (42-75); Platelet Morphology Comment Appears Adequate; Potassium 4.3 mmol/L (3.5-5.1); Protein, Total 6.3 g/dL (5.8-8.1); RBC Morphology Normal; Reactive Lymphocytes 7 % (0-10); Sodium 138 mmol/L (136-145)
[2021-10-04] MEDS: Enoxaparin Sodium 40 MG/0.4 ML SYRINGE SC SCH (09:16)
[2021-10-04] MEDS: Carbidopa/Levodopa 25-100 mg Tablet PO SCH ×4 (09:16→19:54)
[2021-10-04] MEDS: Ascorbic Acid 500 mg Chewable Tablet PO SCH (09:17)
[2021-10-04] MEDS: Zinc Sulfate 220 MG CAP PO SCH (09:17)
[2021-10-04] MEDS: Famotidine/PF 20 mg/2ml Vial SLOW IVP SCH ×2 (09:19→19:54)
[2021-10-04] MEDS: cefTRIAXone\\ROCEPHIN 1 GM in Sodium Chloride 0.9% 100 ML IVPB SCH (14:21)
[2021-10-04] MEDS: Cholecalciferol 1,000 UNITS (25 MCG) TAB PO SCH (19:53)
[2021-10-04] MEDS: Amlodipine 5 MG TAB PO PRN (20:16)
[2021-10-05] MEDS: Sodium Chloride 0.9% 1,000 ML IV SCH (05:03)
[2021-10-05 08:53] VITALS: TEMP 98.3
[2021-10-05] MEDS: Carbidopa/Levodopa 25-100 mg Tablet PO SCH ×2 (10:30→13:39)
[2021-10-05] MEDS: Enoxaparin Sodium 40 MG/0.4 ML SYRINGE SC SCH (10:30)
[2021-10-05] MEDS: Ascorbic Acid 500 mg Chewable Tablet PO SCH (10:30)
[2021-10-05] MEDS: Zinc Sulfate 220 MG CAP PO SCH (10:30)
[2021-10-05] MEDS: Famotidine/PF 20 mg/2ml Vial SLOW IVP SCH (10:31)
[2021-10-05 12:01] VITALS: BP 167/50
[2021-10-05] MEDS: Amlodipine 5 MG TAB PO PRN (13:39)
[2021-10-05] MEDS: cefTRIAXone\\ROCEPHIN 1 GM in Sodium Chloride 0.9% 100 ML IVPB SCH (13:44)
== END 2021-10-05 13:47 | disposition home health service (06) | DRG 177 ==
LOC: ERS 09:16 → T4-A 13:42 → SURG A 10-04 11:21 → T4-A 10-04 11:24
PROVIDERS: ADMIT Internal Medicine; ATTEND Internal Medicine
PROC: 8E0ZXY6 Isolation (ICD-10-PCS; principal; 2021-10-03)
DX: U07.1 COVID-19 (principal); G92.8 Other toxic encephalopathy; Z66 Do not resuscitate; G20 Parkinson's disease; F02.80 Dementia in other diseases classified elsewhere, unspecified severity, without behavioral disturbance, psychotic disturbance, mood disturbance, and anxiety; I25.10 Atherosclerotic heart disease of native coronary artery without angina pectoris; N40.0 Benign prostatic hyperplasia without lower urinary tract symptoms; E78.5 Hyperlipidemia, unspecified; G62.9 Polyneuropathy, unspecified; E86.0 Dehydration; N18.2 Chronic kidney disease, stage 2 (mild); I12.9 Hypertensive chronic kidney disease with stage 1 through stage 4 chronic kidney disease, or unspecified chronic kidney disease; S51.002A Unspecified open wound of left elbow, initial encounter; R29.6 Repeated falls; Z91.81 History of falling; Z28.21 Immunization not carried out because of patient refusal; Z78.1 Physical restraint status; Z95.1 Presence of aortocoronary bypass graft; Z90.49 Acquired absence of other specified parts of digestive tract; Z98.890 Other specified postprocedural states; Z79.899 Other long term (current) drug therapy; Z82.49 Family history of ischemic heart disease and other diseases of the circulatory system
CPT/HCPCS: 36415; 70450; 71045; 80053; 80306; 80307; 81003; 81015; 82550; 83605; 83690; 83880; 84443; 84484; 85025; 87040; 87086; 93005; 97139; J0360; J0696; J1650; J3490; J7050; S0028; U0002

== ENCOUNTER 2022-07-14 16:46 | Outpatient (CLI) | payer BC | END 2022-07-14 16:47 | disposition home or self-care (01) | LOC: RAD 16:46 | PROVIDERS: ATTEND Family Medicine | DX: M25.422 Effusion, left elbow (principal); R93.7 Abnormal findings on diagnostic imaging of other parts of musculoskeletal system ==